=== PATIENT | male | born 2000 | race Caucasian/White ===

== ENCOUNTER 2023-07-16 23:30 | Emergency (ER) | payer MEDICAID ==
[~2023-07-16] VITALS: Ht 175.3 cm; Wt 54.5 kg
[2023-07-16 23:34] VITALS: BP 117/62; PULSE 114; RESP 16; TEMP 98; O2SAT 99
[2023-07-17] MEDS ORDERED: TETanus/Pertussis (Acell)/Diphther VAC/PF (Tdap-Adult) 0.5ml syringe IMVAC ONE (00:50)
[2023-07-17] MEDS ORDERED: cephalexin 250mg capsule PO ONE (00:50)
[2023-07-17] MEDS ORDERED: CEPH250T PO (00:51)
== END 2023-07-17 01:16 | disposition home or self-care (01) ==
LOC: ER 23:31
DX: L03.113 Cellulitis of right upper limb (principal); M79.631 Pain in right forearm; Z79.2 Long term (current) use of antibiotics; Z23 Encounter for immunization
CPT/HCPCS: 90471; 90715; 99283

== ENCOUNTER 2023-07-19 19:05 | Emergency (ER) | payer MEDICAID ==
[~2023-07-19] VITALS: Ht 175.3 cm; Wt 52.3 kg
[~2023-07-19 19:05] MED LIST: CEPH250T PO
[2023-07-19 19:13] VITALS: BP 121/74; PULSE 86; RESP 14; TEMP 98.5; O2SAT 99
[2023-07-19] MEDS ORDERED: LIDOcaine 1% W/epiNEPHrine 1:100,000 20ml vial IJ ONE (20:10)
[2023-07-19 21:36] LABS: URINE AMPHETAMINE SCREEN NEGATIVE (Neg); URINE BARBITUATE SCREEN NEGATIVE (Neg); URINE BENZODIAZEPINES SCREEN NEGATIVE (Neg); URINE CANNABINOID SCREEN POSITIVE (Neg); URINE COCAINE SCREEN NEGATIVE (Neg); URINE METHADONE SCREEN NEGATIVE (Neg); URINE OPIATE SCREEN NEGATIVE (Neg); URINE PHENCYCLIDINE SCREEN NEGATIVE (Neg)
[2023-07-19 21:39] LABS: EOSINOPHILS # (AUTO) 0.1 X10'3 (0-0.9); MONOCYTES # (AUTO) 0.7 X10'3 (0-0.9)
[2023-07-19 21:42] LABS: BASOPHILS # (AUTO) 0.1 X10'3 (0-0.2); BASOPHILS % (AUTO) 0.9 % (0-1); EOSINOPHILS % (AUTO) 1.8 % (0-6); HEMATOCRIT 45.5 % (42.0-52.0); HEMOGLOBIN 15.6 g/dl (14.0-17.9); LYMPHOCYTES # (AUTO) 1.9 X10'3 (1.1-4.8); LYMPHOCYTES % (AUTO) 29.9 % (21-51); MEAN CORPUSCULAR HGB CONC 34.3 g/dL (33.0-36.5); MEAN CORPUSCULAR VOLUME 96.1 FL (78-98); MEAN PLATELET VOLUME 6.3 FL (7.4-10.4); MONOCYTES % (AUTO) 10.6 % (2-12); NEUTROPHILS # (AUTO) 3.6 X10'3 (1.8-7.7); NEUTROPHILS % (AUTO) 56.8 % (42-75); PLATELET COUNT 257 X10'3 (140-440); RED BLOOD COUNT 4.74 X10'6 (4.70-6.10); RED CELL DISTRIBUTION WIDTH 12.3 % (11.5-14.5); WHITE BLOOD COUNT 6.3 X10'3 (4.5-11.0)
[2023-07-19 21:48] LABS: ALBUMIN 4.2 G/DL (3.4-5.0); ANION GAP 5 (8-16); BLOOD UREA NITROGEN 6 MG/DL (7-18); BUN/CREATININE RATIO 6.4 (10.0-20.0); CALCIUM 9.7 MG/DL (8.5-10.1); CHLORIDE 103 MMOL/L (99-107); CREATININE 0.94 MG/DL (0.60-1.10); GLUCOSE 85 MG/DL (70-104); POTASSIUM 3.3 MMOL/L (3.5-5.1); SODIUM 139 MMOL/L (135-145); TOTAL CARBON DIOXIDE 31.3 MMOL/L (24-32); eCRCL 92 ML/MIN; eGFR > 90 ML/MIN
[2023-07-19] MEDS ORDERED: sulfamethoxazole/trimethoprim DS (800/160mg) tablet PO ONE (22:00)
[2023-07-19] MEDS ORDERED: amox tr/potassium clavulanate 875/125mg TAB PO ONE (22:00)
[2023-07-19] MEDS ORDERED: SULF1TAB45 PO (22:02)
[2023-07-19] MEDS ORDERED: AMOX-117 PO (22:02)
== END 2023-07-19 22:27 | disposition home or self-care (01) ==
LOC: ER 19:05
DX: L03.113 Cellulitis of right upper limb (principal); I80.8 Phlebitis and thrombophlebitis of other sites
CPT/HCPCS: 36415; 80048; 80305; 85025; 99283

== ENCOUNTER 2025-01-09 21:10 | Emergency (ER) | payer MEDICAID ==
[~2025-01-09] VITALS: Ht 180.3 cm; Wt 66.5 kg
[2025-01-09 21:33] LABS: BASOPHILS # (AUTO) 0.1 X10'3 (0-0.2); EOSINOPHILS # (AUTO) 0.5 X10'3 (0-0.9); MEAN PLATELET VOLUME 6.4 FL (7.4-10.4); MONOCYTES # (AUTO) 0.6 X10'3 (0-0.9); NEUTROPHILS # (AUTO) 3.4 X10'3 (1.8-7.7)
[2025-01-09 21:35] LABS: EOSINOPHILS % (AUTO) 7.8 % (0-6); HEMATOCRIT 46.8 % (42.0-52.0); HEMOGLOBIN 16.2 g/dl (14.0-17.9); LYMPHOCYTES % (AUTO) 30.9 % (21-51); MEAN CORPUSCULAR HEMOGLOBIN 32.9 PG (27.0-31.0); MEAN CORPUSCULAR HGB CONC 34.7 g/dL (33.0-36.5); MEAN CORPUSCULAR VOLUME 94.8 FL (78-98); MONOCYTES % (AUTO) 9.2 % (2-12); NEUTROPHILS % (AUTO) 51.1 % (42-75); PLATELET COUNT 276 X10'3 (140-440); RED BLOOD COUNT 4.94 X10'6 (4.70-6.10); RED CELL DISTRIBUTION WIDTH 12.3 % (11.5-14.5); WHITE BLOOD COUNT 6.6 X10'3 (4.5-11.0)
[2025-01-09 21:48] LABS: ALANINE AMINOTRANSFERASE 20 U/L (12-78); ALBUMIN 4.3 G/DL (3.4-5.0); ALBUMIN/GLOBULIN RATIO 1.2 (1.1-1.5); ALKALINE PHOSPHATASE 66 IU/L (46-116); ANION GAP 8 (8-16); ASPARTATE AMINO TRANSFERASE 13 U/L (10-37); BILIRUBIN,TOTAL 0.8 MG/DL (0.1-1.0); BLOOD UREA NITROGEN 15 MG/DL (7-18); BUN/CREATININE RATIO 14.3 (10.0-20.0); CALCIUM 9.2 MG/DL (8.5-10.1); CHLORIDE 106 MMOL/L (99-107); CREATININE 1.05 MG/DL (0.60-1.10); GLUCOSE 88 MG/DL (70-104); POTASSIUM 4.1 MMOL/L (3.5-5.1); SODIUM 145 MMOL/L (135-145); TOTAL CARBON DIOXIDE 31.3 MMOL/L (24-32); TOTAL PROTEIN 7.9 G/DL (6.4-8.2); eCRCL 103 ML/MIN; eGFR 88 ML/MIN
[2025-01-09 21:55] LABS: PRO BRAIN NATRIURETIC PEPTIDE < 30 PG/ML (0-125)
[2025-01-09] MEDS ORDERED: AZIT-164 PO (23:50)
[2025-01-09] MEDS ORDERED: ALBU18HF2 INH (23:50)
[2025-01-09] MEDS ORDERED: PRED20TA PO (23:50)
[2025-01-09] MEDS ORDERED: BENZ-38 PO (23:51)
[2025-01-09] MEDS: predniSONE 20 mg tablet PO STA (23:55)
[2025-01-09] MEDS: ipratropium/albuterol 3ml nebule NEB STA (23:55)
[2025-01-09] MEDS: azithromycin 250mg tablet PO STA (23:55)
[2025-01-09 23:58] VITALS: PULSE 94; RESP 18; O2SAT 96
[2025-01-10 00:01] VITALS: PULSE 108; RESP 18; O2SAT 98
[2025-01-10 00:11] VITALS: PULSE 87; RESP 14; TEMP 98.4; O2SAT 97
== END 2025-01-10 00:15 | disposition home or self-care (01) ==
LOC: ER 21:10
DX: J45.901 Unspecified asthma with (acute) exacerbation (principal); J18.9 Pneumonia, unspecified organism
CPT/HCPCS: 36415; 71045; 80053; 83880; 84484; 85025; 93005; 94640; 99285; J7512